=== PATIENT | male | born 1980 | race Caucasian/White ===

== ENCOUNTER 2023-04-16 00:05 | Emergency (ER) | payer OTHER ==
[~2023-04-16] VITALS: Ht 175.3 cm; Wt 83.9 kg
[2023-04-16 00:05] VITALS: BP 132/87; PULSE 115; RESP 17; TEMP 98.3; O2SAT 97
[2023-04-16] MEDS ORDERED: LORazepam 1 MG TAB PO ONE (01:55)
[2023-04-16] MEDS ORDERED: NACL 0.9% 1,000 ML IV ONE (01:55)
== END 2023-04-16 02:53 ==
LOC: MED 00:05
DX: R00.0 Tachycardia, unspecified (principal)
CPT/HCPCS: 99283